=== PATIENT | male | born 1945 | race Caucasian/White ===

== ENCOUNTER 2018-01-27 13:22 | Outpatient (CLI) | payer OTHER ==
--- NOTE | 2018-01-29 09:36 | XRAY Report ---
Procedure Date: 01/27/2018 Accession Number: [id number] / [id number] Procedure: XRS - Hip w/Pelvis 2-3V RT CPT Code: FULL RESULT: EXAM: RIGHT HIP AND PELVIS RADIOGRAPHY EXAM DATE: 01/27/2018 01:36 PM. HISTORY: R HIP PAIN. COMPARISONS: None. TECHNIQUE: 1 view of the pelvis and 1 view of the hip. FINDINGS: Bones: Calcifications at and above the superior margin of the greater trochanters bilaterally are compatible with chronic enthesopathy. No fracture or bone lesion. 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 No malalignment. Soft Tissues: Vascular calcifications demonstrated.. No soft tissue swelling. IMPRESSION: 1. No acute abnormality. 2. Mild chronic and degenerative findings, as above. 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
== END 2018-01-27 13:23 | disposition home or self-care (01) ==
LOC: DI.S 13:22
PROVIDERS: ATTEND Internal Medicine
DX: M16.11 Unilateral primary osteoarthritis, right hip (principal)

== ENCOUNTER 2022-01-29 15:24 | Outpatient (CLI) | payer OTHER ==
[2022-01-29 21:17] LABS: ESTIMATED AVERAGE GLUCOSE 128 mg/dL (70-100); HEMOGLOBIN A1c% 6.1 % (4.27-6.07)
== END 2022-01-29 15:25 | disposition home or self-care (01) ==
LOC: LAB.S 15:24
PROVIDERS: ATTEND Registered Nurse
DX: R73.03 Prediabetes (principal)
CPT/HCPCS: 36415; 83036

== ENCOUNTER 2022-12-04 22:40 | Emergency (ER) | payer MEDICARE, OTHER ==
[2022-12-04 23:11] LABS: BASOPHILS # (AUTO) 0.1 10^3/uL (0.0-0.1); BASOPHILS % (AUTO) 0.7 %; EOSINOPHILS # (AUTO) 0.1 10^3/uL (0.0-0.7); EOSINOPHILS % (AUTO) 1.3 %; HCT - HEMATOCRIT 45.4 % (42.0-52.0); HGB - HEMOGLOBIN 14.9 g/dL (14.0-18.0); LYMPHOCYTES # (AUTO) 1.9 10^3/uL (1.5-3.5); MEAN CORPUSCULAR HEMOGLOBIN 30.6 pg (27.0-31.0); MEAN CORPUSCULAR HGB CONC 32.8 g/dL (32.0-36.0); MEAN CORPUSCULAR VOLUME 93.2 fL (80.0-94.0); MEAN PLATELET VOLUME 10.5 fL (7.4-11.4); MONOCYTES # (AUTO) 0.4 10^3/uL (0.0-1.0); MONOCYTES % (AUTO) 5.8 %; NEUTROPHILS # (AUTO) 4.6 10^3/uL (1.5-6.6); NEUTROPHILS % (AUTO) 65.1 %; NRBC ABSOLUTE COUNT (AUTO) 0.03 x10^3/uL; NUCLEATED RED BLOOD CELLS AUTO 0.4 /100WBC; PLT - PLATELET COUNT 196 10^3/uL (130-450); RED BLOOD COUNT 4.87 10^6/uL (4.70-6.10); RED CELL DISTRIBUTION WIDTH 13.6 % (12.0-15.0)
[2022-12-04 23:15] LABS: PT - PROTHROMBIN TIME 10.8 secs (9.9-12.6)
--- NOTE | 2022-12-04 23:18 | ED Physician Documentation ---
PD HPI ALTERED MENTAL STATUS - Stated complaint Stated Complaint: CONFUSION - Chief complaint Chief Complaint: Neuro - History obtained from History obtained from: Patient - Additional information Additional information: HPI from patient. Patient was attending a Zoom meeting this evening which started at approximately 6:30 PM today. Patient says he felt "out of it" (per patient), with difficulty concentrating/ Focusing thoughts. At some point during the meeting, he suddenly had realization that the meeting was starting correction through the agenda. He thought this particularly odd, but did not mention this to anyone, but subsequently had multiple indications from other participants that the patient had been there since the beginning of the meeting, and thus patient began to realize that he had completely forgotten (had no memory of) the first half of the meeting. The patient says he does remember sitting down to the computer and setting up for the Zoom meeting. But the next thing he recalls are events that took place midway through this meeting. He denies headache, denies visual changes, weakness, numbness. He says he has very mild nausea but no vomiting. He says he has episodic, mild lightheadedness, and says that when he was walking, he seemed to be unsteady on his feet. The patient denies history of similar symptoms.The patient is able to form new memories. Review of Systems Constitutional: denies: Fever Eyes: denies: Loss of vision, Decreased vision Cardiac: reports: Reviewed and negative Respiratory: reports: Reviewed and negative GI: reports: Nausea. denies: Abdominal Pain, Vomiting : denies: Dysuria, Frequency, Incontinent PD PAST MEDICAL HISTORY - Past Medical History Past Medical History: Yes Cardiovascular: Congestive heart failure, Hypertension Respiratory: None Neuro: None Endocrine/Autoimmune: None GI: None : None HEENT: None Psych: None Musculoskeletal: None Derm: None - Past Surgical History Past Surgical History: No - Present Medications Home Medications: Ambulatory Orders Medication Instructions Recorded Confirmed Losartan [Cozaar] 50 mg PO DAILY 12/04/22 12/04/22 Lovastatin 10 mg PO DAILY 12/04/22 12/04/22 - Allergies Allergies/Adverse Reactions: Allergies Allergy/AdvReac Type Severity Reaction Status Date / Time No Known Drug Allergies Allergy Verified 12/04/22 22:53 - Social History Does the pt smoke?: No Smoking Status: Never smoker Does the pt drink ETOH?: Yes Does the pt have substance abuse?: No - Immunizations Immunizations are current?: Yes - POLST Patient has POLST: No PD ED PE NORMAL - Vitals Vital signs reviewed: Yes - General General: Alert and oriented X 3, No acute distress, Well developed/nourished - HEENT HEENT: Atraumatic, PERRL, EOMI - Neck Neck: Supple, no meningeal sign - Cardiac Cardiac: RRR - Respiratory Respiratory: No respiratory distress, Clear bilaterally - Abdomen Abdomen: Soft, Non tender - Derm Derm: Normal color, Warm and dry - Extremities Extremities: No edema - Neuro Neuro: Alert and oriented X 3, roustabout crew leader 2-12 intact, No motor deficit, No sensory deficit, Normal speech Eye Opening: Spontaneous Motor: Obeys Commands Verbal: Oriented GCS Score: 15 - Psych Psych: Normal mood, Normal affect PD ED PE EXPANDED - Cardiac Cardiac: Murmur Present (2/6 JEFFERY across precordium (not new, per patient)) NIHSS - Time Time: 23:45 - Level of Consciousness Level of consciousness: (0) Alert, Keenly responsive LOC Questions: (0) Answers both Q's correct LOC Commands: (0) Performs both correctly - Gaze Best Gaze: (0) Normal - Visual Visual: (0) No loss - Facial Palsy Facial Palsy: (0) Normal, symmetrical movement - Motor Arms (both separate) Motor Arm (right): (0) No drift Motor Arm (left): (0) No drift - Motor Legs (both separate) Motor Leg (right): (0) No drift Motor Leg (left): (0) No drift - Limb Ataxia Limb Ataxia: (0) Absent - Sensory Sensory: (0) Normal - Best Language Best Language: (0) No aphasia - Dysarthria Dysarthria: (0) Normal - Extinction and Inattention (formally neg Extinction and inattention: (0) No abnormality - Total Score/Results Total Score/Result: 0 Results - Vitals Vitals: Vital Signs - 24 hr 12/04/22 12/04/22 12/05/22 22:43 22:57 00:20 Temperature 36.8 C Heart Rate 80 75 73 Respiratory 17 17 17 Rate Blood Pressure 154/86 H 141/84 H 126/79 O2 Saturation 99 97 98 12/05/22 12/05/22 12/05/22 00:48 01:05 02:02 Temperature Heart Rate 69 67 77 Respiratory 12 12 11 L Rate Blood Pressure 137/82 H 132/87 H 125/77 O2 Saturation 96 96 95 Oxygen O2 Source Room air - EKG (time done) No standard instances EKG releavant findings:: EKG personally interpreted by author of this note. Relevant findings are: Rate: Rate (enter#) (69) Rhythm: NSR [place]: Normal Intervals: Normal [place] QRS: Normal Ischemia: Normal ST segments #2 EKG releavant findings:: EKG personally interpreted by author of this note. Relevant findings are: Rate: Rate (enter#) (67) Rhythm: NSR [place]: Normal Intervals: Normal [place] QRS: Normal Ischemia: Normal ST segments Other comments: Other comments (RSR' V2) - Labs Labs: Laboratory Tests 12/04/22 12/04/22 12/04/22 23:02 23:02 23:02 WBC 7.0 RBC 4.87 Hgb 14.9 Hct 45.4 MCV 93.2 MCH 30.6 MCHC 32.8 RDW 13.6 Plt Count 196 MPV 10.5 Neut # (Auto) 4.6 Lymph # (Auto) 1.9 [place] # (Auto) 0.4 Eos # (Auto) 0.1 Baso # (Auto) 0.1 Absolute Nucleated RBC 0.03 Nucleated RBC % 0.4 PT 10.8 INR 1.0 Sodium 141 Potassium 3.9 Chloride 106 Carbon Dioxide 24 Anion Gap 11.0 BUN 17 Creatinine 0.8 Estimated GFR (MDRD) 94 Glucose 124 H POC Whole Bld Glucose Calcium 9.4 Total Bilirubin 0.4 AST 26 ALT 32 Alkaline Phosphatase 51 Total Protein 7.5 Albumin 4.7 Globulin 2.8 Albumin/Globulin Ratio 1.7 Ethyl Alcohol 114.3 12/04/22 23:10 WBC RBC Hgb Hct MCV MCH MCHC RDW Plt Count MPV Neut # (Auto) Lymph # (Auto) [place] # (Auto) Eos # (Auto) Baso # (Auto) Absolute Nucleated RBC Nucleated RBC % PT INR Sodium Potassium Chloride Carbon Dioxide Anion Gap BUN Creatinine Estimated GFR (MDRD) Glucose POC Whole Bld Glucose 120 H Calcium Total Bilirubin AST ALT Alkaline Phosphatase Total Protein Albumin Globulin Albumin/Globulin Ratio Ethyl Alcohol - Rads (name of study) CTA head Relevant Findings:: Prelim report reviewed, See rad report CTA neck Relevant Findings:: Prelim report reviewed, See rad report PD Medical Decision Making - ED course Complexity details: reviewed results, re-evaluated patient, considered differential, d/w patient ED course: Patient presents with a fixed period of loss of memory of events (amnesia). He is able to form/retain new memories, and has recollection of events leading up to the period of amnesia that occurred earlier this evening. There are no concerning nor diagnostic findings on tonight's tests including on blood tests, EKG, CTA of the head and of the neck. His symptoms have resolved although he still has no memory of the beginning of the Zoom meeting earlier tonight and likely will not regain said recollection of that timeframe. Differential diagnosis favors transient global amnesia. TIA is also considered, although it would be atypical with TIA to have amnesia without any other neurologic findings/complaints. Specific type of seizure such as absence seizure would also be considered on the differential, though unlikely. Results discussed with patient. We discussed that the cause of symptoms is not apparent at this time, although diagnoses such as TIA and transient global amnesia would not have specific nor diagnostic findings on the tests performed tonight. Given that his symptoms have resolved and (although he still does not recall the beginning of the Zoom meeting), and the reassuring test results, it is safe and appropriate for discharge at this time. Return precautions are discussed, and I instructed him to contact his primary care provider to arrange for next available of appointment for follow-up and reevaluation Departure - Departure Disposition: 01 Home, Self Care Clinical Impression: Amnesia memory loss Condition: Good Instructions: ED Altered Loc, ED Transient Ischemic Attack Comments: There are no concerning or diagnostic findings on tonight's test, including the blood tests, urinalysis, CT scans of your head and your neck. There was a moderate amount of atherosclerosis sclerotic plaque buildup in a couple of the arteries of the neck , but not enough to cause symptoms or warrant concern. Thus, the cause of your symptoms is not apparent at this time. As we discussed, diagnoses I would consider as possible explanations would include TIA (in instructions for TIA are provided elsewhere on these discharge instructions), TGA (transient global amnesia, which is an unusual phenomenon that is of unclear cause, unfortunately I do not have discharge instructions that review this diagnosis). I recommend that you contact your primary care provider in the morning when their office opens to arrange for next available appointment for reevaluation of your symptoms. Certainly, you can return to the emergency department at any time you feel you need reevaluation, particularly if her symptoms recur/worsen. Discharge Date/Time: 12/05/22 02:20
[2022-12-04 23:25] LABS: ALBUMIN 4.7 g/dL (3.2-5.5); ALBUMIN/GLOBULIN RATIO 1.7 (1.0-2.2); BILIRUBIN,TOTAL 0.4 mg/dL (0.2-1.0); CALCIUM 9.4 mg/dL (8.5-10.3); CREATININE 0.8 mg/dL (0.6-1.2); ETOH - ETHANOL 114.3 mg/dL; POTASSIUM 3.9 mmol/L (3.5-5.0); TOTAL PROTEIN 7.5 g/dL (6.7-8.2)
[2022-12-05] MEDS ORDERED: iohexoL-300 100 ML VIAL ONE (00:06)
--- NOTE | 2022-12-05 01:01 | CT Report ---
PROCEDURE: ANGIO HEAD W/WO INDICATIONS: AMS, nearly resolved CONTRAST: Omni 300 100ml TECHNIQUE: Precontrast 4.5 mm thick angled axial sections acquired from the foramen magnum to the vertex. Afte r the administration of intravenous contrast, 1 mm thick sections acquired through the [place] of [place] is. Postcontrast 4.5 mm thick sections then re-acquired from the foramen magnum to the vertex. 3-di mensional ricifay-ktbamhpkt-pmiimmgvho (MIP) and/or volume rendering reformats were acquired of the c entral intracranial vasculature. For radiation dose reduction, the following was used: automated ex posure control, adjustment of mA and/or kV according to patient size. COMPARISON: None FINDINGS: Image quality: Good CSF spaces: Basal cisterns are patent. Lateral ventricles are symmetric. Volume: Vascular calcifications. Periventricular white matter disease is commonly seen with chronic m icroangiopathy. Volume loss is present. These findings are mild. Brain: No intracranial hemorrhage. Zhang-white differentiation is grossly maintained. Craniofacial structures: No displaced fracture. Sinuses are clear. Orbits are intact. Head angiography Anterior circulation: ICAs: Mild bilateral cavernous carotid calcifications. ACAs: normal and symmetric MCAs: normal and symmetric AComm: no aneurysm Posterior circulation: Dominance: Slightly left dominant Vertebral arteries: Mild left intracranial atherosclerosis. Basilar artery: unremarkable PComms: no aneurysm counselor camp: normal and symmetric IMPRESSION: No acute intracranial abnormality on noncontrast CT. No high-grade stenosis, large vessel occlusion o r other significant CT arteriogram and abnormality. If there is high concern for infarct, consider MR I. Measures of stenosis were performed with NASCET criteria. Reviewed by: Frederic Castro MD on 12/05/2022 1:00 AM PDT Approved by: Frederic Castro MD on 12/05/2022 1:00 AM PDT Station ID: [id number]
--- NOTE | 2022-12-05 01:05 | CT Report ---
PROCEDURE: ANGIO NECK W INDICATIONS: AMS nearly resolved CONTRAST: Omni 300 100ml TECHNIQUE: After the administration of intravenous contrast, 1.5 mm axial sections acquired from the aortic arch to the [place] of [place]. Coronal 3-D maximum intensity projection (MIP) and/or volume rendering ref ormats were then performed. For radiation dose reduction, the following was used: automated exposur e control, adjustment of mA and/or kV according to patient size. COMPARISON: None. FINDINGS: Image quality: Good Neck angiography Aortic arch and subclavian arteries: Mild atherosclerotic calcifications. CCAs: Mild bilateral narrowing ICA origins (by NASCET criteria): Mild calcifications causing less than 50% narrowing. ICAs: no stenosis, occlusion or aneurysm. ECAs: origins are patent. Vertebral arteries: Moderate bilateral origin narrowing secondary to atherosclerosis. Soft tissues: no significant mass, aneurysm, or lymphadenopathy Lung apices: no pneumothorax Bones: no acute or suspicious abnormality. IMPRESSION: No high-grade stenosis or large vessel occlusion. Moderate bilateral vertebral artery origin narrowin g. Reviewed by: Frederic Castro MD on 12/05/2022 1:04 AM PDT Approved by: Frederic Castro MD on 12/05/2022 1:04 AM PDT Station ID: [id number]
[2022-12-05 02:03] VITALS: BP 125/77
[2022-12-05] MEDS ORDERED: iohexoL-300 100 ML VIAL IVP ONE (03:08)
== END 2022-12-05 02:20 | disposition home or self-care (01) ==
LOC: ED 22:40
DX: R41.3 Other amnesia (principal)
CPT/HCPCS: 36415; 70496; 70498; 80053; 85025; 85610; 93005; 99283; 99284; G0480; Q9967; 80320

== ENCOUNTER 2024-03-11 23:02 | Outpatient (CLI) | payer MEDICARE | END 2024-03-11 23:59 | disposition critical access hospital (66) | LOC: EMS 23:02 | DX: R41.0 Disorientation, unspecified (principal); R53.1 Weakness; R11.10 Vomiting, unspecified | CPT/HCPCS: A0425; A0429 ==

== ENCOUNTER 2024-03-11 23:32 | Emergency (ER) | payer MEDICARE ==
--- NOTE | 2024-03-11 23:41 | ED Physician Documentation ---
History of Present Illness - Stated complaint Stated Complaint: VOMITING, NOT FEELING WELL - History obtained from History obtained from: Patient - Additonal information Additional information: 78yM with pmh htn, hld, p/w intermittent confusion per along with an episode of nbnb n/v. patient aoX4 for ems. does endorse alcohol use tonight. no longer nauseous in the ED. denies other complaints PD PAST MEDICAL HISTORY - Past Medical History Cardiovascular: Congestive heart failure, Hypertension Respiratory: None Neuro: None Endocrine/Autoimmune: None GI: None : None HEENT: None Psych: None Musculoskeletal: None Derm: None - Past Surgical History Past Surgical History: No - Present Medications Home Medications: Ambulatory Orders Medication Instructions Recorded Confirmed Losartan [Cozaar] 50 mg PO DAILY 12/04/22 12/04/22 Lovastatin 10 mg PO DAILY 12/04/22 12/04/22 - Allergies Allergies/Adverse Reactions: Allergies Allergy/AdvReac Type Severity Reaction Status Date / Time No Known Drug Allergies Allergy Verified 12/04/22 22:53 - Social History Does the pt smoke?: No Smoking Status: Never smoker Does the pt drink ETOH?: Yes Does the pt have substance abuse?: No - Immunizations Immunizations are current?: Yes - POLST Patient has POLST: No PD ED PE NORMAL - Vitals Vital signs reviewed: Yes - General General: Alert and oriented X 3, No acute distress, Well developed/nourished - HEENT HEENT: Atraumatic, PERRL, EOMI - Neck Neck: Supple, no meningeal sign - Cardiac Cardiac: RRR - Respiratory Respiratory: No respiratory distress, Clear bilaterally - Abdomen Abdomen: Non tender, Non distended - Back Back: No CVA TTP - Derm Derm: Normal color, Warm and dry - Extremities Extremities: No deformity - Neuro Neuro: Alert and oriented X 3, frame runner 2-12 intact, No motor deficit, No sensory deficit, Normal speech Eye Opening: Spontaneous Motor: Obeys Commands Verbal: Oriented GCS Score: 15 - Psych Psych: Normal mood, Normal affect Results - Vitals Vitals: Vital Signs - 24 hr 03/11/24 03/12/24 23:33 00:15 Temperature 36.7 C Heart Rate 70 77 Respiratory 18 14 Rate Blood Pressure 136/79 H 120/93 H O2 Saturation 98 94 Oxygen O2 Source Room air - EKG (time done) 0008 EKG releavant findings:: EKG personally interpreted by author of this note. Relevant findings are: Rhythm: NSR [place]: Normal Intervals: Prolonged [place] (212) QRS: Normal Ischemia: Normal ST segments - Labs Labs: Laboratory Tests 03/11/24 03/11/24 23:45 23:45 WBC 8.4 RBC 4.35 L Hgb 13.3 L Hct 40.5 L MCV 93.1 MCH 30.6 MCHC 32.8 RDW 13.8 Plt Count 186 MPV 10.4 Neut # (Auto) 5.4 Lymph # (Auto) 2.0 [place] # (Auto) 0.7 Eos # (Auto) 0.1 Baso # (Auto) 0.1 Absolute Nucleated RBC 0.00 Nucleated RBC % 0.0 Sodium 139 Potassium 4.0 Chloride 105 Carbon Dioxide 21 Anion Gap 13.0 BUN 14 Creatinine 1.0 Estimated GFR (MDRD) 73 L Glucose 190 H Calcium 9.5 Magnesium 1.9 Total Bilirubin 0.4 AST 20 ALT 23 Alkaline Phosphatase 52 Total Protein 6.7 Albumin 4.3 Globulin 2.4 Albumin/Globulin Ratio 1.8 Lipase 22 Ethyl Alcohol 168.0 PD Medical Decision Making - ED course ED course: 78yM p/w brief resolved episode of confusion per , along with an episode of unexplained n/v in setting of alcohol use. plan to obtain labwork, monitor the patient and obtain ekg. IVF ordered as well as zofran and pepcid for nausea. likely dc home if workup uncovers no acute issues. Patient mentating normally at this time. Labwork came back with elevated alcohol. He is now asymptomatic. plan to f/u with pcp outpatient. return precautions given. Departure - Departure Disposition: 01 Home, Self Care Clinical Impression: Nausea and vomiting, Alcohol use, Confusion Condition: Stable Instructions: ED Nausea Vomiting Comments: You were seen in the emergency department for medical evaluation and found to have significantly elevated alcohol level. Please try to avoid drinking to excess since this can adversely affect your health and put you at risk of falls. The recommended daily amount of alcohol for men is 1-2 servings or less. Please follow-up with your primary care provider and return to the emergency department if you have any new or worsening symptoms or other concerns.
[2024-03-11] MEDS: SODIUM CHLORIDE 0.9% 1,000 ML IV ONE (23:47)
[2024-03-11] MEDS: ONDANSETRON 4 MG/2 ML VIAL IVP STA (23:47)
[2024-03-11] MEDS: FAMOTIDINE 20 MG/2 ML VIAL IVP STA (23:48)
[2024-03-11 23:49] LABS: BASOPHILS # (AUTO) 0.1 10^3/uL (0.0-0.1); BASOPHILS % (AUTO) 0.7 %; EOSINOPHILS # (AUTO) 0.1 10^3/uL (0.0-0.7); EOSINOPHILS % (AUTO) 1.7 %; HCT - HEMATOCRIT 40.5 % (42.0-52.0); HGB - HEMOGLOBIN 13.3 g/dL (14.0-18.0); LYMPHOCYTES % (AUTO) 24.4 %; MEAN CORPUSCULAR HEMOGLOBIN 30.6 pg (27.0-31.0); MEAN CORPUSCULAR HGB CONC 32.8 g/dL (32.0-36.0); MEAN CORPUSCULAR VOLUME 93.1 fL (80.0-94.0); MEAN PLATELET VOLUME 10.4 fL (7.4-11.4); MONOCYTES # (AUTO) 0.7 10^3/uL (0.0-1.0); MONOCYTES % (AUTO) 8.7 %; NEUTROPHILS # (AUTO) 5.4 10^3/uL (1.5-6.6); NEUTROPHILS % (AUTO) 64.1 %; PLT - PLATELET COUNT 186 10^3/uL (130-450); RED BLOOD COUNT 4.35 10^6/uL (4.70-6.10); RED CELL DISTRIBUTION WIDTH 13.8 % (12.0-15.0); WHITE BLOOD COUNT 8.4 x10^3/uL (4.8-10.8)
[2024-03-12 00:01] LABS: MAGNESIUM 1.9 mg/dL (1.7-2.3)
[2024-03-12 00:07] LABS: ALBUMIN 4.3 g/dL (3.2-5.5); ALBUMIN/GLOBULIN RATIO 1.8 (1.0-2.2); BILIRUBIN,TOTAL 0.4 mg/dL (0.2-1.0); CALCIUM 9.5 mg/dL (8.5-10.3); TOTAL PROTEIN 6.7 g/dL (6.4-8.9)
[2024-03-12 01:26] LABS: AMPHETAMINE SCREEN,URINE NEGATIVE (NEGATIVE); BARBITURATE SCREEN,UR NEGATIVE (NEGATIVE); BENZODIAZEPINES SCREEN, URINE NEGATIVE (NEGATIVE); BUPRENORPHINE SCREEN, URINE NEGATIVE (NEGATIVE); COCAINE SCREEN URINE NEGATIVE (NEGATIVE); METHADONE SCREEN, URINE NEGATIVE (NEGATIVE); METHAMPHETAMINES SCREEN, URINE NEGATIVE (NEGATIVE); OPIATE SCREEN, URINE NEGATIVE (NEGATIVE); OXYCODONE SCREEN, URINE NEGATIVE (NEGATIVE); THC CANNABINOID SCREEN, URINE NEGATIVE (NEGATIVE); TRICYCLIC ANTIDEPRESSANT,URINE NEGATIVE (NEGATIVE)
[2024-03-12 02:44] VITALS: BP 116/67; O2SAT 95
== END 2024-03-12 02:36 | disposition home or self-care (01) ==
LOC: EDUNIT# → ED 23:32
DX: R41.0 Disorientation, unspecified (principal); F10.90 Alcohol use, unspecified, uncomplicated; Y90.6 Blood alcohol level of 120-199 mg/100 ml; R11.2 Nausea with vomiting, unspecified; I11.0 Hypertensive heart disease with heart failure; I50.9 Heart failure, unspecified; Z79.899 Other long term (current) drug therapy
CPT/HCPCS: 36415; 80053; 80306; 83690; 83735; 85025; 93005; 96361; 96374; 96375; 99284; G0480; 82077